=== PATIENT | male | born 1960 | race Caucasian/White ===

== ENCOUNTER 2023-11-07 19:47 | Emergency (ER) | payer MEDICARE, OTHER, SELFPAY ==
[2023-11-07 19:48] VITALS: BP 165/84
[2023-11-07 23:59] VITALS: BP 165/87
--- NOTE | 2023-11-08 00:15 | ED.GENMED ---
History of Present Illness
General
Chief Complaint: Fall
Source: patient
Exam Limitations: none
Time Seen by Provider: 11/07/23 20:02
Nursing documentation reviewed up to this point in time: agreed with
Travel History
Have you had any contact with someone who has COVID-19?: No
Do you have any symptoms of coronavirus? Fever > 100 degrees, chills, cough, shortness of breath, sore throat, loss of taste or smell, muscle aches, or headache?: No
History of Present Illness
History of Present Illness:
Patient states he lost his footing and fell Hit back of head on corner of table. No LOC. has lac to posterior scalp. Injuryoccurred just [employer]. Brought to ED by spouse for eval. Hx parkinsons, frequent falls.
Past History
Past History
ED Past Medical History: Other (Parkinson's, Deep brain stimulator)
ED Past Surgical History: Cholecystectomy, Orthopedic and Other (Transmitter for Parkinson's)
Social History
Tobacco: Non-smoker
Alcohol: Occasional
Personal:
Living: with family
Family History
Family History: Negative Early CAD
Review of Systems
Review of Systems
Allergies reviewed?: Yes
All Other Systems: ROS reviewed and negative except as documented in HPI and ROS
Constitutional: Reports no symptoms
EENT: Reports no symptoms
Respiratory: Reports no symptoms
Cardiac: Reports no symptoms
ABD/GI: Reports no symptoms
Musculoskeletal: Reports no symptoms
Skin: Reports other (Laceration posterior scalp.)
Neurological: Reports no symptoms
Psychiatric: Reports no symptoms
Phy Exam
General Physical Exam
General Presentation: well appearing and no apparent distress
General age: appears stated age
General Skin: warm and dry
General Habitus: normal
General Mental: alert
Neurological Exam
Neurological Exam: alert, oriented x3, CN II-XII intact, no motor deficits, no sensory deficits and normal gait
Annelise Coma Scale
Eye Opening: Spontaneous
Verbal Response: Oriented
Motor Response: Obeys Commands
GCS Total Score: 15
Musculoskeletal Exam
Musculoskeletal Exam: full ROM and neuro vasc intact
Skin Exam
Skin Exam: normal color, warm/dry and no rash
Psychiatric Exam
Psychiatric Exam: normal mood/affect
Course
Orders/Labs/Results
Orders:
Orders
11/07/23 20:15
CT Head W/o Iv Contrast Urgent
Comment:
Reason For Exam: trauma
Cervical Spine wo Contrast CT [CT Cervical Spine W/o Iv Contr] Urgent
Comment:
Reason For Exam: Trauma
Vital Signs
Initial and Last Documented VS:
Initial Vital Signs
Temp Pulse Resp BP Pulse Ox
98.0 F 52 18 165/84 99
11/07/23 19:48 11/07/23 19:48 11/07/23 19:48 11/07/23 19:48 11/07/23 19:48
Last Documented Vital Signs
Temp Pulse Resp BP Pulse Ox
98.0 F 52 18 165/87 99
11/07/23 19:48 11/07/23 19:48 11/07/23 19:48 11/07/23 23:59 11/07/23 19:48
Procedures
Laceration Closure
Posterior Scalp:
Status of Wound: clean
Description of Wound Edges: sharp
Preparation: cleaned with saline
Anesthesia: 1% Lidocaine
Revision/Debridement: routine- no revision
Wound exploration: explored to base- no FB
Type of Closure: single layer closure
Skin Closure Material: skin hansel
*Radiology
Radiology exam reviewed: radiology read reviewed
*Pulse Oximetry
Patient hypoxic: no
*Critical Care Note
Total Time (30-74mins, 75-104mins- exclusive of procedures): Not Applicable
ED Attending Note
-
Portions of this chart may have been created with voice recognition software.� Occasional wrong word or��sound alike� substitutions may have occurred due to the inherent limitations of voice recognition software.
Discharge Plan
Departure
Patient Disposition: Home (Routine Discharge)
Date of Disposition: 11/07/23
Time of Disposition: 23:41
Patient with high blood pressure during this ER visit?: No
Condition: Good
Covid-19: Not Applicable
Discharge Problem:
Head injury
Instructions: Head Injury in Adults (DC), Laceration Repair With Hansel (DC), Preventing falls in adults
Prescriptions:
No Action
carbidopa-levodopa 1 EACH tablet
1 tab PO .5TIMESDAILY
bisacodyl 5 MG tablet,delayed release (DR/EC)
5 mg PO DAILYPRN PRN (Reason: constipation)
lorazepam 0.5 MG tablet
0.5 mg PO DAILY PRN (Reason: anxiety)
carbidopa-levodopa [Rytary] 1 EACH capsule, extended release
1 cap PO QID
Referrals:
NONE,* [Family Provider] -
Activity Restrictions/Additional Instructions:
Hansel can be removed in 5-7 days by your family doctor.
Interventions
Interventions:
*Risk Screen - Suicide Last Done: 11/07/23 19:48
*General Assessment Last Done: 11/07/23 19:48
*Neglect/Abuse Screening Last Done: 11/07/23 19:48
ED- Fall Risk Assessment Last Done: 11/08/23 00:00
*Nursing Disposition Last Done: 11/07/23 23:59
ED-Musculoskeletal Assessment Last Done: 11/07/23 20:10
ED- Neurological Assessment Last Done: 11/07/23 20:10
ED-Skin Assessment Last Done: 11/07/23 20:10
Discharge Date and Time
Discharge Date/Time: 11/08/23 00:01
Skin Exam
Laceration
posterior scalp:
Length in cm: 2.5
Orientation: vertical
Type of Laceration: simple
Any active bleeding?: no active bleeding
Distal skin color and temperature: normal-warm & good color
Normal distal neurovascular exam: Yes
== END 2023-11-08 00:01 | disposition home or self-care (01) ==
LOC: EMR 19:47
PROVIDERS: EMERGENCY PHYSICIAN Emergency Medicine
DX: S09.90XA Unspecified injury of head, initial encounter (principal); S01.01XA Laceration without foreign body of scalp, initial encounter; W19.XXXA Unspecified fall, initial encounter
CPT/HCPCS: 99284; 12001; 70450; 72125